=== PATIENT | male | born 1985 | race Caucasian/White ===

== ENCOUNTER 2018-06-11 13:52 | Emergency (ER) | payer BC ==
[2018-06-11 15:09] VITALS: BP 149/71
--- NOTE | 2018-06-11 15:49 | UC ---
Back Pain HPI - HPI Summary HPI Summary: was out working on his car bent over and he had a sudden spasm of back back in the thoracic area---it is better now but the muscles along the right side of his spine are painful---has had a similar pain in his neck when he had a disc issue - History of Current Complaint Chief Complaint: UCBackPain Stated Complaint: BACK PAIN *2DAYS Time Seen by Provider: 06/11/18 15:19 Hx Obtained From: Patient Onset/Duration: Sudden Onset, Lasting Hours - 2 Pain Intensity: 5 Pain Scale Used: 0-10 Numeric Back Pain: Is Discrete @ Character: Throbbing, Spasmodic, Stiffness Aggravating Factor(s): Movement Alleviating Factor(s): Position Associated Signs And Symptoms: Positive: Negative - Allergies/Home Medications Allergies/Adverse Reactions: Allergies Allergy/AdvReac Type Severity Reaction Status Date / Time Penicillins Allergy Unknown Unknown Verified 06/11/18 15:00 Reaction Details Home Medications: Home Medications Lisinopril TAB* [Prinivil TAB 10 MG*] 10 mg PO DAILY 06/11/18 [History Confirmed 06/11/18] Omeprazole CAP* [Prilosec CAP* 20 MG] 20 mg PO DAILY 06/11/18 [History Confirmed 06/11/18] PMH/Surg Hx/FS Hx/Imm Hx Previously Healthy: No Cardiovascular History: Hypertension GI/ History: Gastroesophageal Reflux - Surgical History Surgical History: None - Family History Known Family History: Positive: Cardiac Disease - Social History Occupation: Employed Full-time Lives: With Family Alcohol Use: None Substance Use Type: None Smoking Status (MU): Never Smoked Tobacco Review of Systems Constitutional: Negative Skin: Negative Eyes: Negative ENT: Negative Respiratory: Negative Cardiovascular: Negative Gastrointestinal: Negative Genitourinary: Negative Motor: Negative Neurovascular: Negative Musculoskeletal: Arthralgia, Myalgia - posterior thorasic muscular pain Neurological: Negative Psychological: Negative Is Patient Immunocompromised?: No All Other Systems Reviewed And Are Negative: Yes Physical Exam Triage Information Reviewed: Yes Appearance: Well-Appearing, Pain Distress - mild, Obese Vital Signs: Initial Vital Signs Temp 99.1 F 06/11/18 15:02 Pulse 86 06/11/18 15:02 Resp 14 06/11/18 15:02 BP 149/71 06/11/18 15:02 Pulse Ox 99 06/11/18 15:02 Vital Signs Reviewed: Yes Eye Exam: Normal Eyes: Positive: Conjunctiva Clear ENT Exam: Normal ENT: Positive: Normal ENT inspection, Hearing grossly normal. Negative: Muffled voice, Hoarse voice, Dental tenderness Dental Exam: Normal Neck exam: Normal Neck: Positive: Supple, Nontender Respiratory Exam: Normal Respiratory: Positive: Chest non-tender, Lungs clear, Normal breath sounds, No respiratory distress, No accessory muscle use Cardiovascular Exam: Normal Cardiovascular: Positive: RRR, No Murmur, Pulses Normal, Brisk Capillary Refill Musculoskeletal Exam: Normal Musculoskeletal: Positive: Strength Intact, ROM Intact, No Edema Neurological Exam: Normal Neurological: Positive: Alert, Muscle Tone Normal Psychological Exam: Normal Skin Exam: Normal Diagnostics - Radiology No standard instances Xray Interpretation: No Acute Changes Radiology Interpretation Completed By: ED Physician, Radiologist - Patient Name : RAI BROWN Medical Record#: [id number] Ordering Physician: Laurita Cash NP Acct.#: [id number] : 1985 Age: 33 Sex: M [facility]: [facility] Exam Date : 06/11/18 1526 ADM Status: REG ER Order Information: CHEST PA & LAT 2 VWS Accession Number: [id number] CPT : 99472 HISTORY: sob with back pain COMPARISONS: None VIEWS: 4: Frontal dual-energy and lateral views of the chest. FINDINGS: CARDIOMEDIASTINAL SILHOUETTE: The cardiomediastinal silhouette is normal. FANNY: The fanny are normal. PLEURA: The costophrenic angles are sharp. No pleural abnormalities are noted. LUNG PARENCHYMA: The lungs are clear. ABDOMEN: The upper abdomen is clear. There is no subphrenic gas. BONES AND SOFT TISSUES: No bone or soft tissue abnormalities are noted. OTHER: None. IMPRESSION: NO ACTIVE CARDIOPULMONARY DISEASE. <Electronically signed by Rai Fleming MD in [place]> 06/11/18 1548 Dictated By: Rai Fleming MD Dictated Date/Time: 06/11/18 1548 Transcribed Date/Time: 06/11/18 0552 Copy to: CC:Laurita Cash PATHOLOGY ASSISTANT; Deisy Fraire MD; Kaye GOLDEN Imaging - [facility] Imaging - [facility] Imaging - [facility] [address] [address] [place] [address] [place] [address] ph ([phone]) ph ([phone] ) ph ([phone]) This report is only to be considered final once signed by the Provider(s) as displayed in the "<Electronically Signed by >" field (s). Absence of a signature indicates the report is in a draft status and still needs to be finalized. In the event this document was created by someone other than the signing Provider, the individual initiating the document will be listed in the "Entered by:" or "Dictated by:" price. 1 of 1 Back Pain Course/Dx - Course Course Of Treatment: ibuprofen, ultram, flexeril,gentle exercise, follow with pcp this week - Differential Dx/Diagnosis Provider Diagnoses: acute back strain Discharge - Sign-Out/Discharge Documenting (check all that apply): Patient Departure - Discharge Plan Condition: Stable Disposition: HOME Prescriptions: Cyclobenzaprine TAB* [Flexeril 10 MG TAB*] 10 mg PO TID PRN #15 tab PRN Reason: muscle spasm Ibuprofen TAB* [Motrin TAB* 600 MG] 600 mg PO Q6H PRN #30 tab PRN Reason: pain traMADol TAB* [Ultram*] 50 mg PO Q6HR PRN #20 tab MDD 4 PRN Reason: pain Patient Education Materials: Muscle Spasm (ED), Back Pain (ED), Lower Back Exercises (ED), Hypertension (ED) Print Language: VENEZUELAN Forms: *Work Release Referrals: Kaye Robledo PA [Primary Care Provider] - 3 Days - Billing Disposition and Condition Condition: STABLE Disposition: Home
== END 2018-06-11 16:22 | disposition home or self-care (01) ==
LOC: UCCORT 13:52
DX: S29.012A Strain of muscle and tendon of back wall of thorax, initial encounter (principal); X50.0XXA Overexertion from strenuous movement or load, initial encounter; Y93.89 Activity, other specified; Y92.008 Other place in unspecified non-institutional (private) residence as the place of occurrence of the external cause; Z88.0 Allergy status to penicillin; I10 Essential (primary) hypertension; K21.9 Gastro-esophageal reflux disease without esophagitis
CPT/HCPCS: 71046; 99202; G0463